=== PATIENT | female | born 1935 | race Caucasian/White ===

== ENCOUNTER → 2018-09-10 | Emergency (ER) | payer MEDICARE, OTHER ==
[~2018-09-10] VITALS: Ht 162.6 cm; Wt 70.5 kg
[~2018-09-10] MED LIST: ALBU6.7H INH; BLAC160C PO; CARB-86 PO; CYAN25003 PO; DIPH25TA2 PO; DOXY100C2 PO; FURO-150 PO; GABA-532 PO; HYDROcodone/acetaminophen 5mg/325mg tablet PO ONE; IRBE1TAB31 PO; LEVO50TA8 PO; POTA1GRA PO; VILA10TA PO; proparacaine 0.5% ophthalmic drops 15ml EACHEYE ONE
[2018-09-10 20:03] VITALS: BP 105/77
== END | disposition home or self-care (01) ==
LOC: ER 19:44
DX: B02.30 Zoster ocular disease, unspecified (principal); R21 Rash and other nonspecific skin eruption; Z88.8 Allergy status to other drugs, medicaments and biological substances; Z79.899 Other long term (current) drug therapy
CPT/HCPCS: 99283

== ENCOUNTER 2019-02-10 18:03 | Inpatient (IN) | payer MEDICARE, OTHER ==
[~2019-02-10] VITALS: Ht 170.2 cm; Wt 74.0 kg
[~2019-02-10 18:03] MED LIST changes: -ALBU6.7H INH; +ALBU6.7H9 INH; -HYDROcodone/acetaminophen 5mg/325mg tablet PO ONE; -proparacaine 0.5% ophthalmic drops 15ml EACHEYE ONE
--- NOTE | 2019-02-10 18:57 | NUR ---
LABS BEING DRAWN , OPPEZZO AWARE OF BP WILL CONTINUE TO REASSESS
--- NOTE | 2019-02-10 19:07 | NUR ---
CHEST X RAY DONE
--- NOTE | 2019-02-10 19:12 | NUR ---
PT TO CT
[2019-02-10 19:14] LABS: BASOPHILS # (AUTO) 0.1 X10'3 (0-0.2); BASOPHILS % (AUTO) 0.7 % (0-1); EOSINOPHILS # (AUTO) 0.2 X10'3 (0-0.9); EOSINOPHILS % (AUTO) 2.6 % (0-6); HEMATOCRIT 36.1 % (35.0-45.0); HEMOGLOBIN 12.4 g/dl (12.0-16.0); LYMPHOCYTES # (AUTO) 0.9 X10'3 (1.1-4.8); LYMPHOCYTES % (AUTO) 9.1 % (21-51); MEAN CORPUSCULAR HEMOGLOBIN 33.1 PG (27.0-31.0); MEAN CORPUSCULAR HGB CONC 34.5 g/dL (33.0-36.5); MEAN CORPUSCULAR VOLUME 96.1 FL (78-98); MEAN PLATELET VOLUME 8.5 FL (7.4-10.4); MONOCYTES # (AUTO) 0.8 X10'3 (0-0.9); MONOCYTES % (AUTO) 8.3 % (2-12); NEUTROPHILS # (AUTO) 7.4 X10'3 (1.8-7.7); NEUTROPHILS % (AUTO) 79.3 % (42-75); PLATELET COUNT 182 X10'3 (140-440); RED BLOOD COUNT 3.75 X10'6 (4.20-5.60); RED CELL DISTRIBUTION WIDTH 13.7 % (11.5-14.5); WHITE BLOOD COUNT 9.4 X10'3 (4.5-11.0)
[2019-02-10 19:30] LABS: ALANINE AMINOTRANSFERASE 17 U/L (12-78); ALBUMIN/GLOBULIN RATIO 1.1 (1.1-1.5); ALKALINE PHOSPHATASE 62 IU/L (46-116); ANION GAP 11 (8-16); ASPARTATE AMINO TRANSFERASE 16 U/L (10-37); BILIRUBIN,TOTAL 0.7 MG/DL (0.1-1.0); BLOOD UREA NITROGEN 81 MG/DL (7-18); BUN/CREATININE RATIO 25.4 (6.6-38.0); CALCIUM 8.1 MG/DL (8.5-10.1); CHLORIDE 101 MMOL/L (99-107); CREATININE 3.19 MG/DL (0.40-0.90); GLUCOSE 87 MG/DL (70-104); POTASSIUM 3.2 MMOL/L (3.5-5.1); SODIUM 137 MMOL/L (135-145); TOTAL CARBON DIOXIDE 25.3 MMOL/L (24-32); TOTAL PROTEIN 5.8 G/DL (6.4-8.2); eGFR 14 ML/MIN
[2019-02-10 19:38] LABS: TROPONIN I < 0.04 NG/ML (0.0-0.05)
[2019-02-10 19:50] LABS: CLARITY,URINE CLEAR (Clear); COLOR,URINE YELLOW (Yellow); GLUCOSE, URINE NEGATIVE (Neg); KETONES,URINE NEGATIVE (Neg); LEUKOCYTE ESTERASE ,URINE NEGATIVE (Neg); NITRITES, URINE NEGATIVE (Neg); OCCULT BLOOD,URINE NEGATIVE (Neg); PH,URINE 5.5 (4.8-8.0); PROTEIN,URINE NEGATIVE (Neg); UROBILINOGEN,URINE 0.2 E.U/dL (0.2-1.0)
[2019-02-10 19:53] LABS: UA COLLECTION TYPE STRAIGHT CATH
--- NOTE | 2019-02-10 20:11 | NUR ---
PT RESTING COMFORTBALY FAMILY AT BEDSIDE
--- NOTE | 2019-02-10 20:25 | NUR ---
NOTIFIED MD CUEVAS OF PTS LOW BP 70/50 MANUAL CUFF - ORDER FOR 1L BOLUS GIVEN - PTS LUNGS CLEAR AT THIS TIME. WILL MONITOR CLOSELY.
[2019-02-10] MEDS ORDERED: normal saline 1000ml 1,000 ML IV ONE (20:35)
[2019-02-10] MEDS ORDERED: potassium Cl 20 mEq SR tablet PO STA (20:55)
--- NOTE | 2019-02-10 21:27 | NUR ---
PTS BP CONTINUES TO TREND ON THE LOWSIDE. MEASUREMENTS HAVE BEEN TAKEN IN EACH ARM BOTH UPPER AND FOREARM WELL MANUAL PRESSURES. CONSISTENT READINGS NO MATTER WHERE OBTAINED. PT REMAINS ALERT AND ORIENTED. NO ACUTE DISTRESS. FAMILY AT BEDSIDE - UPDATED ON PLAN OF CARE.
--- NOTE | 2019-02-10 21:49 | NUR ---
BP TAKEN ON BILATERAL LOWER LEGS AND SYSTOLIC WAS IN THE 120'S EACH TIME. AWARE AND SPEAKING WITH PT.
[2019-02-10] MEDS ORDERED: ANAS1TAB PO (22:15)
[2019-02-10] MEDS ORDERED: HYDR12.55 PO (22:31)
[2019-02-10] MEDS ORDERED: TIOT4MIS2 IH (22:33)
--- NOTE | 2019-02-10 22:33 | NUR ---
PT UNABLE TO RECALL WHICH MEDICATIONS SHE TAKES. EMS PROVIDED US WITH A LIST BUT NO DOSES OR FREQUENCY. MED REC COMPLETED USING EXTERNAL MED HISTORY AND PTS BEST RECALL
--- NOTE | 2019-02-10 23:25 | NUR ---
PT TO FLOOR 129/53 98 % RA RR 16 HR 70 PAIN 07/18 LATIC AT 1.3 RN TORSTEN REPORTED OFF TOO
[2019-02-10] MEDS: anastrozole 1 MG tablet PO SCH (23:30)
[2019-02-10] MEDS ORDERED: magnesium 4gm in 100ml NS 100 ML IV PRN (23:40)
[2019-02-10] MEDS ORDERED: ondansetron/PF 4mg/2ml inj IV PRN (23:40)
[2019-02-10] MEDS ORDERED: potassium Cl 20 mEq SR tablet PO PRN (23:40)
[2019-02-10] MEDS ORDERED: potassium CL 10mEq/100ml bag 100 ML IV PRN ×2 (23:40)
[2019-02-10] MEDS ORDERED: magnesium 2GM in 50ml NS 50 ML IV PRN (23:40)
[2019-02-10] MEDS ORDERED: magnesium Cl slow-release 64mg tablet PO PRN (23:40)
[2019-02-11] VITALS (10 sets, daily range): BP systolic 97–165; BP diastolic 36–101
[2019-02-11] MEDS ORDERED: non-formulary drug (Albuterol Sulfate (Proventil Hfa) 2 PUFFS) INH SCH
[2019-02-11] MEDS ORDERED: diphenhydrAMINE 25mg capsule PO PRN (00:20)
[2019-02-11] MEDS: normal saline 1000ml 1,000 ML IV SCH ×3 (00:41→19:56)
--- NOTE | 2019-02-11 00:45 | NUR ---
Patient in room PCU 3013. I have received report from Ashley BARRERA and had the opportunity to ask questions and assume patient care.
[2019-02-11] MEDS ORDERED: albuterol 2.5 MG/3 ML nebule NEB PRN (02:00)
[2019-02-11 05:36] LABS: ALBUMIN 2.9 G/DL (3.4-5.0); ANION GAP 9 (8-16); BLOOD UREA NITROGEN 68 MG/DL (7-18); BUN/CREATININE RATIO 25.7 (6.6-38.0); CALCIUM 8.3 MG/DL (8.5-10.1); CHLORIDE 106 MMOL/L (99-107); CREATININE 2.65 MG/DL (0.40-0.90); GLUCOSE 82 MG/DL (70-104); MAGNESIUM 2.1 MG/DL (1.5-2.4); SODIUM 139 MMOL/L (135-145); TOTAL CARBON DIOXIDE 24.5 MMOL/L (24-32); eGFR 17 ML/MIN
[2019-02-11 05:42] LABS: POTASSIUM 3.7 MMOL/L (3.5-5.1)
--- NOTE | 2019-02-11 06:22 | NUR ---
Patient in room PCU 3013. I have received report from Cheng BARRERA and had the opportunity to ask questions and assume patient care. Pt was in bed resting with . all needs met at this time.
--- NOTE | 2019-02-11 06:24 | NUR ---
Problems reprioritized. Patient report given, questions answered & plan of care reviewed with Pura/Breezy RNs.
[2019-02-11 06:53] LABS: BASOPHILS # (AUTO) 0.1 X10'3 (0-0.2); BASOPHILS % (AUTO) 1.1 % (0-1); EOSINOPHILS # (AUTO) 0.2 X10'3 (0-0.9); EOSINOPHILS % (AUTO) 3.8 % (0-6); HEMOGLOBIN 9.6 g/dl (12.0-16.0); LYMPHOCYTES # (AUTO) 0.6 X10'3 (1.1-4.8); LYMPHOCYTES % (AUTO) 10.9 % (21-51); MEAN CORPUSCULAR HEMOGLOBIN 33.1 PG (27.0-31.0); MEAN CORPUSCULAR HGB CONC 34.3 g/dL (33.0-36.5); MEAN CORPUSCULAR VOLUME 96.6 FL (78-98); MEAN PLATELET VOLUME 8.1 FL (7.4-10.4); MONOCYTES # (AUTO) 0.5 X10'3 (0-0.9); MONOCYTES % (AUTO) 8.9 % (2-12); NEUTROPHILS % (AUTO) 75.3 % (42-75); PLATELET COUNT 142 X10'3 (140-440); RED CELL DISTRIBUTION WIDTH 13.9 % (11.5-14.5); WHITE BLOOD COUNT 5.3 X10'3 (4.5-11.0)
[2019-02-11] MEDS: cyanocobalamin 500mcg tablet PO SCH (07:42)
[2019-02-11] MEDS: levoTHYROXINE 25mcg tablet PO SCH (07:42)
[2019-02-11] MEDS: anastrozole 1 MG tablet PO SCH (07:43)
[2019-02-11] MEDS: K and/or MAG REPLACEMENT MC SCH (07:45)
--- NOTE | 2019-02-11 10:41 | NUR ---
Pt has refused to have field start PIV removed per protocol.
--- NOTE | 2019-02-11 11:52 | NUR ---
PAGER ID: [phone] MESSAGE: [id number] Naya Holcomb: PHILLIPI Ortho VS positive this am, rechecked and negative now but c/o headache and dizziness. Thanks Breezy [id number]
--- NOTE | 2019-02-11 12:00 | NUR ---
Patient refused lunch d/t family bringing her lunch of friend chicken and mashed potatoes, pt has a regular diet Addendum: 02/11/19 at 1556 by Breezy Ortiz RN Amended: Links added.
--- NOTE | 2019-02-11 18:04 | NUR ---
New hire documentation: I have reviewed and agree with all interventions, assessments performed and documented by Breezy BARRERA.
--- NOTE | 2019-02-11 18:27 | NUR ---
Problems reprioritized. Patient report given, questions answered & plan of care reviewed with Cheng BARRERA.
--- NOTE | 2019-02-11 18:49 | NUR ---
Patient in room PCU 3013. I have received report from Pura/Breezy RNs and had the opportunity to ask questions and assume patient care.
[2019-02-12 02:00] VITALS: BP 114/39
[2019-02-12 05:15] LABS: BASOPHILS # (AUTO) 0.1 X10'3 (0-0.2); BASOPHILS % (AUTO) 1.1 % (0-1); EOSINOPHILS # (AUTO) 0.3 X10'3 (0-0.9); EOSINOPHILS % (AUTO) 5.4 % (0-6); HEMATOCRIT 30.8 % (35.0-45.0); HEMOGLOBIN 10.7 g/dl (12.0-16.0); LYMPHOCYTES # (AUTO) 0.7 X10'3 (1.1-4.8); MEAN CORPUSCULAR HEMOGLOBIN 33.4 PG (27.0-31.0); MEAN CORPUSCULAR HGB CONC 34.7 g/dL (33.0-36.5); MEAN CORPUSCULAR VOLUME 96.1 FL (78-98); MEAN PLATELET VOLUME 8.4 FL (7.4-10.4); MONOCYTES # (AUTO) 0.5 X10'3 (0-0.9); MONOCYTES % (AUTO) 8.3 % (2-12); NEUTROPHILS # (AUTO) 4.4 X10'3 (1.8-7.7); NEUTROPHILS % (AUTO) 74.2 % (42-75); PLATELET COUNT 154 X10'3 (140-440); RED CELL DISTRIBUTION WIDTH 13.9 % (11.5-14.5)
[2019-02-12 05:32] LABS: ALBUMIN 2.6 G/DL (3.4-5.0); ANION GAP 9 (8-16); BLOOD UREA NITROGEN 42 MG/DL (7-18); BUN/CREATININE RATIO 20.8 (6.6-38.0); CALCIUM 7.9 MG/DL (8.5-10.1); CHLORIDE 110 MMOL/L (99-107); CREATININE 2.02 MG/DL (0.40-0.90); GLUCOSE 87 MG/DL (70-104); MAGNESIUM 1.7 MG/DL (1.5-2.4); POTASSIUM 3.2 MMOL/L (3.5-5.1); SODIUM 143 MMOL/L (135-145); TOTAL CARBON DIOXIDE 24.1 MMOL/L (24-32); eGFR 24 ML/MIN
[2019-02-12] MEDS: potassium Cl 20 mEq SR tablet PO PRN ×2 (05:49→10:08)
[2019-02-12] MEDS: normal saline 1000ml 1,000 ML IV SCH (05:49)
[2019-02-12 06:00] VITALS: BP 109/41
--- NOTE | 2019-02-12 06:00 | NUR ---
Patient in room PCU 3013. I have received report from Cheng BARRERA and had the opportunity to ask questions and assume patient care.
--- NOTE | 2019-02-12 06:10 | NUR ---
Orientee documentation: I have reviewed and agree with all interventions, assessments performed and documented by Roxann BARRERA
--- NOTE | 2019-02-12 06:20 | NUR ---
Problems reprioritized. Patient report given, questions answered & plan of care reviewed with Thien/Breezy RNs.
--- NOTE | 2019-02-12 06:28 | NUR ---
Patient in room PCU 3013. I have received report from Cheng BARRERA and had the opportunity to ask questions and assume patient care. Pt is in bed resting all needs met at this time.
[2019-02-12] MEDS: levoTHYROXINE 25mcg tablet PO SCH (07:44)
[2019-02-12] MEDS: anastrozole 1 MG tablet PO SCH (07:44)
[2019-02-12] MEDS: cyanocobalamin 500mcg tablet PO SCH (07:44)
[2019-02-12] MEDS: K and/or MAG REPLACEMENT MC SCH (07:46)
--- NOTE | 2019-02-12 12:00 | NUR ---
I agree with all of Breezy garber's charting
--- NOTE | 2019-02-12 12:05 | NUR ---
Pt is stable for discharge per MD orders, discharge instructions reviewed with patient daughter and spouse, all questions answered, no new medication prescription at time of discharge, tele 58 removed and returned, PIV removed and clean dry dressing in place, pt wheeled to lobby by hospital staff @ 1202, will discharge to home with home health services with daughter and spouse in private vehicle, all belongings with pt at the time of discharge.
== END 2019-02-12 12:06 | disposition home health service (06) | DRG 314 ==
LOC: ER 18:03 → PCU 3S 23:50 → CMPBEDREQ 23:59
PROVIDERS: ADMIT Internal Medicine; ATTEND Internal Medicine
DX: I95.9 Hypotension, unspecified (principal); N17.0 Acute kidney failure with tubular necrosis; D64.9 Anemia, unspecified; E86.0 Dehydration; E03.9 Hypothyroidism, unspecified; I12.9 Hypertensive chronic kidney disease with stage 1 through stage 4 chronic kidney disease, or unspecified chronic kidney disease; I25.10 Atherosclerotic heart disease of native coronary artery without angina pectoris; I70.0 Atherosclerosis of aorta; N18.9 Chronic kidney disease, unspecified; F32.9 Major depressive disorder, single episode, unspecified; R19.7 Diarrhea, unspecified; Z90.2 Acquired absence of lung [part of]; Z85.3 Personal history of malignant neoplasm of breast; Z85.118 Personal history of other malignant neoplasm of bronchus and lung; Z88.8 Allergy status to other drugs, medicaments and biological substances; Z79.899 Other long term (current) drug therapy; Z79.890 Hormone replacement therapy; Z79.811 Long term (current) use of aromatase inhibitors; Z92.3 Personal history of irradiation
CPT/HCPCS: 36415; 71045; 74176; 80048; 80053; 81003; 83605; 83735; 84145; 84443; 84484; 85025; 87040; 87081; 93005; 94760; 96360; 97110; 97116; 97161; 97530; 99285; G0378; J7030

== ENCOUNTER 2019-03-31 09:58 | Inpatient (IN) | payer MEDICARE, OTHER ==
[~2019-03-31] VITALS: Ht 170.2 cm; Wt 63.6 kg
[~2019-03-31 09:58] MED LIST changes: +ANAS1TAB PO; -BLAC160C PO; -CARB-86 PO; -DOXY100C2 PO; -FURO-150 PO; -GABA-532 PO; -IRBE1TAB31 PO; -POTA1GRA PO; +TIOT4MIS2 IH
[2019-03-31] MEDS ORDERED: normal saline 1000ML IV soln IV ONE (10:15)
[2019-03-31 10:48] LABS: BASOPHILS # (AUTO) 0.1 X10'3 (0-0.2); BASOPHILS % (AUTO) 0.5 % (0-1); EOSINOPHILS # (AUTO) 0.1 X10'3 (0-0.9); EOSINOPHILS % (AUTO) 0.8 % (0-6); HEMATOCRIT 41.6 % (35.0-45.0); HEMOGLOBIN 14.4 g/dl (12.0-16.0); LYMPHOCYTES # (AUTO) 0.6 X10'3 (1.1-4.8); LYMPHOCYTES % (AUTO) 4.2 % (21-51); MEAN CORPUSCULAR HEMOGLOBIN 32.8 PG (27.0-31.0); MEAN CORPUSCULAR HGB CONC 34.7 g/dL (33.0-36.5); MEAN CORPUSCULAR VOLUME 94.5 FL (78-98); MEAN PLATELET VOLUME 8.6 FL (7.4-10.4); MONOCYTES # (AUTO) 0.7 X10'3 (0-0.9); MONOCYTES % (AUTO) 4.6 % (2-12); NEUTROPHILS # (AUTO) 12.8 X10'3 (1.8-7.7); NEUTROPHILS % (AUTO) 89.9 % (42-75); PLATELET COUNT 268 X10'3 (140-440); RED CELL DISTRIBUTION WIDTH 14.9 % (11.5-14.5); WHITE BLOOD COUNT 14.2 X10'3 (4.5-11.0)
[2019-03-31 11:03] LABS: PARTIAL THROMBOPLASTIN TIME 25 SECONDS (22-32)
[2019-03-31 11:04] LABS: ALANINE AMINOTRANSFERASE 27 U/L (12-78); ALBUMIN 3.3 G/DL (3.4-5.0); ALBUMIN/GLOBULIN RATIO 0.8 (1.1-1.5); ALKALINE PHOSPHATASE 100 IU/L (46-116); ANION GAP 13 (8-16); ASPARTATE AMINO TRANSFERASE 33 U/L (10-37); BLOOD UREA NITROGEN 25 MG/DL (7-18); BUN/CREATININE RATIO 12.6 (6.6-38.0); CALCIUM 8.6 MG/DL (8.5-10.1); CHLORIDE 90 MMOL/L (99-107); CREATININE 1.98 MG/DL (0.40-0.90); GLUCOSE 116 MG/DL (70-104); SODIUM 134 MMOL/L (135-145); TOTAL PROTEIN 7.2 G/DL (6.4-8.2); eGFR 24 ML/MIN
[2019-03-31 11:07] LABS: POTASSIUM 2.3 MMOL/L (3.5-5.1)
[2019-03-31] MEDS ORDERED: potassium Cl 10 mEq/100mL bag IV ONE (11:15)
[2019-03-31] MEDS ORDERED: CefTRIAXone 2gm/D5W 50ml 50 ML IV ONE (11:20)
[2019-03-31 11:32] LABS: CLARITY,URINE CLEAR (Clear); COLOR,URINE YELLOW (Yellow); GLUCOSE, URINE NEGATIVE (Neg); KETONES,URINE TRACE mg/dl (Neg); LEUKOCYTE ESTERASE ,URINE NEGATIVE (Neg); NITRITES, URINE NEGATIVE (Neg); OCCULT BLOOD,URINE NEGATIVE (Neg); PROTEIN,URINE NEGATIVE (Neg)
[2019-03-31 11:36] LABS: UA COLLECTION TYPE STRAIGHT CATH
--- NOTE | 2019-03-31 12:01 | NUR ---
PT VITALS CHECKED BP 129/74,HR 76.FAMILY AT BEDSIDE,PT IV ABX FINISHED ,500 ML OF N.S INFUSING PER MD ORDERS.NO DISTRESS NOTED,WILL CONT TO MONITOR.
[2019-03-31] MEDS ORDERED: CHOL100046 PO (13:34)
[2019-03-31] MEDS ORDERED: magnesium Cl slow-release 64mg tablet PO PRN (13:50)
[2019-03-31] MEDS ORDERED: magnesium 4gm in 100ml NS 100 ML IV PRN (13:50)
[2019-03-31] MEDS ORDERED: magnesium 2GM in 50ml NS 50 ML IV PRN (13:50)
[2019-03-31] MEDS ORDERED: magnesium hydroxide 30ml (MOM) UD suspension PO PRN (13:50)
[2019-03-31] MEDS ORDERED: mag hydrox/Alum hydrox/simeth 30ml oral suspension PO PRN (13:50)
[2019-03-31] MEDS ORDERED: acetaminophen 325mg tablet PO PRN (13:50)
[2019-03-31] MEDS ORDERED: potassium CL 10mEq/100ml bag 100 ML IV PRN ×2 (13:50)
[2019-03-31] MEDS ORDERED: ondansetron/PF 4mg/2ml inj IV PRN (13:50)
[2019-03-31] MEDS ORDERED: HYDROcodone/acetaminophen 5mg/325mg tablet PO PRN (13:50)
[2019-03-31] MEDS ORDERED: morphine 2 MG/ML inj. syringe IV PRN ×2 (13:50)
[2019-03-31] MEDS ORDERED: ipratropium/albuterol 3ml nebule NEB PRN (14:10)
[2019-03-31] MEDS: normal saline 1000ml 1,000 ML IV SCH ×2 (14:47→21:31)
--- NOTE | 2019-03-31 14:48 | NUR ---
PT RESTING IN BED QUIETLY NO DISTRESS NOTED,PT FAMILY AT BEDSIDE ,IV FLUID INFUSING PER MD ORDERS.
[2019-03-31] MEDS: ipratropium/albuterol 3ml nebule NEB SCH ×2 (16:18→20:41)
[2019-03-31 18:00] VITALS: BP 103/54
--- NOTE | 2019-03-31 18:43 | NUR ---
Patient in room [facility] 359. I have received report from BRUCE Herrera and had the opportunity to ask questions and assume patient care.
[2019-03-31] MEDS: potassium Cl 20 mEq SR tablet PO PRN (19:17)
[2019-03-31] MEDS: heparin, porcine 5000 units/ml vial SQ SCH (19:18)
[2019-03-31 20:00] VITALS: BP_SYST 102; BP_SYST 89; BP_SYST 96; BP_DIAS 48; BP_DIAS 59; BP_DIAS 62
[2019-04-01] VITALS (12 sets, daily range): BP systolic 63–95; BP diastolic 40–63
[2019-04-01] MEDS: potassium Cl 20 mEq SR tablet PO PRN ×4 (01:00→19:26)
[2019-04-01] MEDS: normal saline 1000ml 1,000 ML IV SCH ×2 (01:06→07:27)
--- NOTE | 2019-04-01 06:15 | NUR ---
Problems reprioritized. Patient report given, questions answered & plan of care reviewed with BRUCE Justin.
[2019-04-01 06:22] LABS: BASOPHILS # (AUTO) 0.1 X10'3 (0-0.2); BASOPHILS % (AUTO) 0.7 % (0-1); EOSINOPHILS # (AUTO) 0.1 X10'3 (0-0.9); EOSINOPHILS % (AUTO) 1.9 % (0-6); HEMATOCRIT 32.3 % (35.0-45.0); HEMOGLOBIN 11.2 g/dl (12.0-16.0); LYMPHOCYTES # (AUTO) 0.3 X10'3 (1.1-4.8); LYMPHOCYTES % (AUTO) 4.4 % (21-51); MEAN CORPUSCULAR HEMOGLOBIN 32.8 PG (27.0-31.0); MEAN CORPUSCULAR HGB CONC 34.5 g/dL (33.0-36.5); MEAN CORPUSCULAR VOLUME 94.9 FL (78-98); MEAN PLATELET VOLUME 8.5 FL (7.4-10.4); MONOCYTES # (AUTO) 0.4 X10'3 (0-0.9); MONOCYTES % (AUTO) 4.9 % (2-12); NEUTROPHILS # (AUTO) 6.9 X10'3 (1.8-7.7); NEUTROPHILS % (AUTO) 88.1 % (42-75); PLATELET COUNT 237 X10'3 (140-440); RED BLOOD COUNT 3.41 X10'6 (4.20-5.60); RED CELL DISTRIBUTION WIDTH 15.2 % (11.5-14.5); WHITE BLOOD COUNT 7.8 X10'3 (4.5-11.0)
[2019-04-01 06:32] LABS: ALBUMIN 2.5 G/DL (3.4-5.0); ANION GAP 11 (8-16); BLOOD UREA NITROGEN 16 MG/DL (7-18); BUN/CREATININE RATIO 9.4 (6.6-38.0); CALCIUM 7.4 MG/DL (8.5-10.1); CHLORIDE 104 MMOL/L (99-107); CREATININE 1.71 MG/DL (0.40-0.90); GLUCOSE 102 MG/DL (70-104); MAGNESIUM 1.5 MG/DL (1.5-2.4); SODIUM 143 MMOL/L (135-145); TOTAL CARBON DIOXIDE 27.9 MMOL/L (24-32); eGFR 29 ML/MIN
--- NOTE | 2019-04-01 06:44 | NUR ---
Patient in room [facility] 359. I have received report from Atilio BARRERA and had the opportunity to ask questions and assume patient care.
[2019-04-01 07:08] LABS: POTASSIUM 2.7 MMOL/L (3.5-5.1)
[2019-04-01] MEDS: CefTRIAXone/D5W-Rocephin 1gm 50 ML IV SCH (07:28)
[2019-04-01] MEDS: vitamin D (cholecalciferol) 1,000 unit tablet PO SCH (07:31)
[2019-04-01] MEDS: levoTHYROXINE 25mcg tablet PO SCH (07:32)
[2019-04-01] MEDS: cyanocobalamin 500mcg tablet PO SCH (07:32)
[2019-04-01] MEDS: heparin, porcine 5000 units/ml vial SQ SCH ×2 (07:33→19:29)
[2019-04-01] MEDS: K and/or MAG REPLACEMENT MC SCH (08:00)
[2019-04-01] MEDS: ipratropium/albuterol 3ml nebule NEB SCH ×3 (08:14→21:00)
--- NOTE | 2019-04-01 11:24 | NUR ---
Patient's unable to pee yet at this time, bladder scan shows 246ml - Dr. Solares notified. I also let him know about the dizziness and low BP during orthostatic vitals check this am. Dr. Solares ordered 1L NS bolus to be given then back to the previous IVF rate.
[2019-04-01] MEDS ORDERED: normal saline 1000ml 1,000 ML IVB ONE ×2 (11:26→14:24)
--- NOTE | 2019-04-01 14:24 | NUR ---
Called Dr. Solares regarding persistent low BP readings SBP 60-80's, heart rate 80's, asymptomatic. I also let the doctor know that patient has still not peeing even after the bolus and we were giving patient KCL for replacement. Bladder scan was 354ml, bladder distended. Justice catheter inserted as ordered, patient tolerated the procedure. Another NS 1L bolus started. Charge nurse Phyllis aware of this
[2019-04-01] MEDS ORDERED: magnesium 2GM in 50ml NS 50 ML IV ONE (15:20)
--- NOTE | 2019-04-01 16:10 | NUR ---
Second liter of NS bolus completed, BP manually was 90/60 on the right arm, pulse 92
--- NOTE | 2019-04-01 17:26 | NUR ---
Mg 2gm IV given per Dr. Solares's order. I made him aware when I received his order that patient's Mg is 1.5.
--- NOTE | 2019-04-01 18:01 | NUR ---
Patient's at bedside reported that patient's new peripheral IV was leaking. IV site was leaking and the catheter was bended. Pressure dressing applied. Patient refused reinsertion at this time. Explained to patient she really need to have a new IV and will have the night nurse put another IV
--- NOTE | 2019-04-01 18:53 | NUR ---
Problems reprioritized. Patient report given, questions answered & plan of care reviewed with Atilio BARRERA.
[2019-04-01] MEDS: lactobacillus rhamnosus 10,000 MMU CELLS/CAPSULE PO SCH (19:27)
--- NOTE | 2019-04-01 20:02 | NUR ---
patient is having low bps today. BP machine showed 64/37, I took it manually and got 90/50. Which is closer to baseline. Patient is not feeling well and has been anxious so I am holding off on orthostatic vitals tonight.She pulled out IV at change of shift charge nurse putting an IV in now which I fel is more of a priority, as well. Addendum: 04/01/19 at 2004 by Atilio Flynn RN Amended: Links added.
[2019-04-02] MEDS ORDERED: normal saline 1000ml 1,000 ML IV ONE
[2019-04-02] MEDS: potassium Cl 20 mEq SR tablet PO PRN (00:18)
--- NOTE | 2019-04-02 00:26 | NUR ---
patients BP was 85/40, I took it manually and got 86/64. Informed hospitalist and he I received an order to give 1L bolus.Will continue to monitor .
[2019-04-02 00:28] VITALS: BP 85/40
--- NOTE | 2019-04-02 00:32 | NUR ---
gentry Richards 86/64 Addendum: 04/02/19 at 0032 by Atilio Flynn RN Amended: Links added.
--- NOTE | 2019-04-02 01:18 | NUR ---
Patients blood pressure after bolus was 98/60, no s/s of fluid overload. Will continue to monitor.
--- NOTE | 2019-04-02 03:00 | NUR ---
0200: Patient pulled IV out. She was also trying to pull peng out. She wanted to go home. Educated patient on why she needs to have an IV and the peng in place. Got her up to the recliner chair, while I changed her bedding. Charge nurse placed new IV in patients left forearm.
[2019-04-02 05:45] LABS: BASOPHILS # (AUTO) 0.1 X10'3 (0-0.2); BASOPHILS % (AUTO) 1.1 % (0-1); EOSINOPHILS # (AUTO) 0.2 X10'3 (0-0.9); EOSINOPHILS % (AUTO) 3.1 % (0-6); HEMATOCRIT 27.2 % (35.0-45.0); HEMOGLOBIN 9.5 g/dl (12.0-16.0); LYMPHOCYTES # (AUTO) 0.3 X10'3 (1.1-4.8); LYMPHOCYTES % (AUTO) 4.3 % (21-51); MEAN CORPUSCULAR HEMOGLOBIN 32.8 PG (27.0-31.0); MEAN CORPUSCULAR HGB CONC 34.7 g/dL (33.0-36.5); MEAN CORPUSCULAR VOLUME 94.4 FL (78-98); MEAN PLATELET VOLUME 8.4 FL (7.4-10.4); MONOCYTES # (AUTO) 0.4 X10'3 (0-0.9); NEUTROPHILS # (AUTO) 6.3 X10'3 (1.8-7.7); NEUTROPHILS % (AUTO) 85.5 % (42-75); PLATELET COUNT 229 X10'3 (140-440); RED BLOOD COUNT 2.88 X10'6 (4.20-5.60); RED CELL DISTRIBUTION WIDTH 15.4 % (11.5-14.5); WHITE BLOOD COUNT 7.4 X10'3 (4.5-11.0)
[2019-04-02] MEDS: normal saline 1000ml 1,000 ML IV SCH ×3 (05:48→20:07)
[2019-04-02 06:19] LABS: ALBUMIN 2.2 G/DL (3.4-5.0); ANION GAP 11 (8-16); BLOOD UREA NITROGEN 7 MG/DL (7-18); BUN/CREATININE RATIO 6.2 (6.6-38.0); CALCIUM 7.1 MG/DL (8.5-10.1); CHLORIDE 110 MMOL/L (99-107); CREATININE 1.13 MG/DL (0.40-0.90); GLUCOSE 99 MG/DL (70-104); POTASSIUM 3.7 MMOL/L (3.5-5.1); SODIUM 142 MMOL/L (135-145); TOTAL CARBON DIOXIDE 21.2 MMOL/L (24-32); eGFR 46 ML/MIN
--- NOTE | 2019-04-02 06:40 | NUR ---
Problems reprioritized. Patient report given, questions answered & plan of care reviewed with Eileen RN.
[2019-04-02 07:00] VITALS: BP 134/75
[2019-04-02] MEDS: levoTHYROXINE 25mcg tablet PO SCH (07:29)
[2019-04-02] MEDS: vitamin D (cholecalciferol) 1,000 unit tablet PO SCH (07:29)
[2019-04-02] MEDS: cyanocobalamin 500mcg tablet PO SCH (07:30)
[2019-04-02] MEDS: lactobacillus rhamnosus 10,000 MMU CELLS/CAPSULE PO SCH ×2 (07:30→20:05)
[2019-04-02] MEDS: K and/or MAG REPLACEMENT MC SCH (07:31)
[2019-04-02] MEDS: CefTRIAXone/D5W-Rocephin 1gm 50 ML IV SCH (07:32)
[2019-04-02] MEDS: heparin, porcine 5000 units/ml vial SQ SCH ×2 (07:36→20:05)
[2019-04-02] MEDS: ipratropium/albuterol 3ml nebule NEB SCH ×3 (07:54→20:33)
[2019-04-02 09:57] VITALS: BP_SYST 104; BP_SYST 114; BP_SYST 99; BP_DIAS 45; BP_DIAS 58; BP_DIAS 61
[2019-04-02 11:23] VITALS: BP 105/47
[2019-04-02 14:44] LABS: % IRON SATURATION 44 % (11-46); IRON 65 UG/DL (49-151); TOTAL IRON BINDING CAPACITY 148 UG/DL (259-388)
--- NOTE | 2019-04-02 18:37 | NUR ---
Patient in room [facility] 359. I have received report from Clarissa BARRERA and had the opportunity to ask questions and assume patient care. Patient is with and daughter by her bedside. She appear to be doing better. She is alert and oriented to her own ability
[2019-04-02 19:00] VITALS: BP 99/44
--- NOTE | 2019-04-02 19:06 | NUR ---
Problems reprioritized. Patient report given, questions answered & plan of care reviewed with BRUCE Josue.
[2019-04-03] VITALS: BP 118/50
[2019-04-03 05:58] LABS: BASOPHILS # (AUTO) 0.1 X10'3 (0-0.2); BASOPHILS % (AUTO) 1.4 % (0-1); EOSINOPHILS # (AUTO) 0.5 X10'3 (0-0.9); HEMATOCRIT 30.1 % (35.0-45.0); HEMOGLOBIN 10.2 g/dl (12.0-16.0); LYMPHOCYTES # (AUTO) 0.4 X10'3 (1.1-4.8); LYMPHOCYTES % (AUTO) 6.7 % (21-51); MEAN CORPUSCULAR HEMOGLOBIN 32.8 PG (27.0-31.0); MEAN CORPUSCULAR HGB CONC 33.9 g/dL (33.0-36.5); MEAN CORPUSCULAR VOLUME 96.8 FL (78-98); MEAN PLATELET VOLUME 8.8 FL (7.4-10.4); MONOCYTES # (AUTO) 0.4 X10'3 (0-0.9); MONOCYTES % (AUTO) 7.1 % (2-12); NEUTROPHILS # (AUTO) 4.8 X10'3 (1.8-7.7); NEUTROPHILS % (AUTO) 76.8 % (42-75); PLATELET COUNT 242 X10'3 (140-440); RED BLOOD COUNT 3.11 X10'6 (4.20-5.60); RED CELL DISTRIBUTION WIDTH 15.9 % (11.5-14.5); WHITE BLOOD COUNT 6.2 X10'3 (4.5-11.0)
[2019-04-03 06:27] LABS: ALBUMIN 2.3 G/DL (3.4-5.0); ANION GAP 8 (8-16); BLOOD UREA NITROGEN 3 MG/DL (7-18); BUN/CREATININE RATIO 2.9 (6.6-38.0); CALCIUM 7.9 MG/DL (8.5-10.1); CHLORIDE 111 MMOL/L (99-107); CREATININE 1.04 MG/DL (0.40-0.90); GLUCOSE 84 MG/DL (70-104); POTASSIUM 3.4 MMOL/L (3.5-5.1); SODIUM 144 MMOL/L (135-145); TOTAL CARBON DIOXIDE 24.9 MMOL/L (24-32); eGFR 51 ML/MIN
--- NOTE | 2019-04-03 06:35 | NUR ---
Patient in room [facility] 359. I have received report from BRUCE Josue and had the opportunity to ask questions and assume patient care.
[2019-04-03 07:00] VITALS: BP 129/71
[2019-04-03] MEDS: K and/or MAG REPLACEMENT MC SCH (07:03)
[2019-04-03] MEDS: vitamin D (cholecalciferol) 1,000 unit tablet PO SCH (08:25)
[2019-04-03] MEDS: heparin, porcine 5000 units/ml vial SQ SCH ×2 (08:26→20:13)
[2019-04-03] MEDS: CefTRIAXone/D5W-Rocephin 1gm 50 ML IV SCH (08:26)
[2019-04-03] MEDS: potassium Cl 20 mEq SR tablet PO PRN ×3 (08:26→22:19)
[2019-04-03] MEDS: lactobacillus rhamnosus 10,000 MMU CELLS/CAPSULE PO SCH ×2 (08:26→20:13)
[2019-04-03] MEDS: cyanocobalamin 500mcg tablet PO SCH (08:26)
[2019-04-03] MEDS: levoTHYROXINE 25mcg tablet PO SCH (08:27)
[2019-04-03] MEDS: ipratropium/albuterol 3ml nebule NEB SCH ×3 (08:34→20:55)
[2019-04-03 11:00] VITALS: BP 103/58
[2019-04-03] MEDS: normal saline 1000ml 1,000 ML IV SCH ×2 (11:48→21:48)
--- NOTE | 2019-04-03 11:48 | NUR ---
I have reviewed and agree with all medications administered and interventions performed by [facility] Student(ZAC) Addendum: 04/03/19 at 1148 by Shila Alcantar RT Amended: Links added.
[2019-04-03] MEDS ORDERED: potassium CL 10mEq/100ml bag 100 ML IV PRN (14:30)
[2019-04-03] MEDS ORDERED: potassium Cl 20 mEq SR tablet PO PRN (14:30)
[2019-04-03] MEDS ORDERED: magnesium 4gm in 100ml NS 100 ML IV PRN (14:30)
[2019-04-03] MEDS ORDERED: magnesium Cl slow-release 64mg tablet PO PRN (14:30)
[2019-04-03 18:00] VITALS: BP 124/79
--- NOTE | 2019-04-03 18:34 | NUR ---
Problems reprioritized. Patient report given, questions answered & plan of care reviewed with BRUCE Goddard.
--- NOTE | 2019-04-03 18:34 | NUR ---
Patient in room [facility] 359. I have received report from BRUCE Steen and had the opportunity to ask questions and assume patient care.
--- NOTE | 2019-04-03 19:00 | NUR ---
pt refused orthostatic vitals
[2019-04-03] MEDS: docusate sod 100mg capsule PO SCH (20:13)
[2019-04-04 00:34] VITALS: BP 122/68
--- NOTE | 2019-04-04 01:40 | NUR ---
pt refused 20mEq potassium pill
[2019-04-04] MEDS: levoTHYROXINE 25mcg tablet PO SCH (06:27)
--- NOTE | 2019-04-04 06:54 | NUR ---
Problems reprioritized. Patient report given, questions answered & plan of care reviewed with BRUCE Davila.
[2019-04-04 07:00] VITALS: BP 107/59
[2019-04-04 07:37] LABS: BASOPHILS # (AUTO) 0.1 X10'3 (0-0.2); BASOPHILS % (AUTO) 1.3 % (0-1); EOSINOPHILS # (AUTO) 0.5 X10'3 (0-0.9); EOSINOPHILS % (AUTO) 9.4 % (0-6); HEMOGLOBIN 10.9 g/dl (12.0-16.0); LYMPHOCYTES # (AUTO) 0.4 X10'3 (1.1-4.8); MEAN CORPUSCULAR HEMOGLOBIN 33.2 PG (27.0-31.0); MEAN CORPUSCULAR HGB CONC 34.1 g/dL (33.0-36.5); MEAN CORPUSCULAR VOLUME 97.5 FL (78-98); MEAN PLATELET VOLUME 8.4 FL (7.4-10.4); MONOCYTES # (AUTO) 0.5 X10'3 (0-0.9); MONOCYTES % (AUTO) 8.1 % (2-12); NEUTROPHILS # (AUTO) 4.4 X10'3 (1.8-7.7); NEUTROPHILS % (AUTO) 75.2 % (42-75); PLATELET COUNT 236 X10'3 (140-440); RED BLOOD COUNT 3.28 X10'6 (4.20-5.60); RED CELL DISTRIBUTION WIDTH 16.2 % (11.5-14.5); WHITE BLOOD COUNT 5.8 X10'3 (4.5-11.0)
[2019-04-04] MEDS: normal saline 1000ml 1,000 ML IV SCH (07:48)
[2019-04-04 07:59] LABS: ALBUMIN 2.3 G/DL (3.4-5.0); ANION GAP 11 (8-16); BLOOD UREA NITROGEN 3 MG/DL (7-18); BUN/CREATININE RATIO 3.1 (6.6-38.0); CALCIUM 8.2 MG/DL (8.5-10.1); CHLORIDE 110 MMOL/L (99-107); CREATININE 0.98 MG/DL (0.40-0.90); GLUCOSE 84 MG/DL (70-104); POTASSIUM 4.3 MMOL/L (3.5-5.1); SODIUM 143 MMOL/L (135-145); TOTAL CARBON DIOXIDE 22.5 MMOL/L (24-32); eGFR 54 ML/MIN
[2019-04-04] MEDS: K and/or MAG REPLACEMENT MC SCH (08:00)
[2019-04-04] MEDS: ipratropium/albuterol 3ml nebule NEB SCH ×2 (09:00→15:27)
[2019-04-04] MEDS: docusate sod 100mg capsule PO SCH (09:12)
[2019-04-04] MEDS: CefTRIAXone/D5W-Rocephin 1gm 50 ML IV SCH (09:12)
[2019-04-04] MEDS: heparin, porcine 5000 units/ml vial SQ SCH (09:13)
[2019-04-04] MEDS: vitamin D (cholecalciferol) 1,000 unit tablet PO SCH (09:14)
[2019-04-04] MEDS: cyanocobalamin 500mcg tablet PO SCH (09:15)
[2019-04-04] MEDS: lactobacillus rhamnosus 10,000 MMU CELLS/CAPSULE PO SCH (09:15)
[2019-04-04 11:00] VITALS: BP 118/63
--- NOTE | 2019-04-04 12:06 | NUR ---
Initial: Pt admit with KEMAR/CKD, suspected dehydration, SIRS/sepsis, acute metabolic encephalopathy, and generally deconditioned. Metabolic encephalopathy resolved however pt with some dementia per MD notes. Sepsis score 0 per physical assessment. Pt currently on a regular diet previously documented with 25-50% PO intake however up to 100% at dinner last night, pending documentation of PO intake today. LBM 03/29, pt just started on routine Colace. Likely appetite will improve once constipation resolves. Will continue to follow. Recommendations: 1) Continue regular diet 2) Monitor need for ONS; encourage PO intake 3) Routine bowel care; monitor need for additional 4) Wt per rx Addendum: 04/04/19 at [address] Amended: Links added.
[2019-04-04] MEDS ORDERED: CEFD300C3 PO (12:20)
[2019-04-04 14:00] VITALS: BP_SYST 67; BP_SYST 84; BP_DIAS 46; BP_DIAS 48; BP_DIAS 62
--- NOTE | 2019-04-04 16:59 | NUR ---
SWEET CATH DC 1400. PT HAD BM WITH URINE MIX. BLADDER SCAN WAS 42. DR HUERTA NOTIFIED. PT READY TO DC HOME. CALLED DAUGHTER TIEN WHO I SPOKE WITH EARLIER RE DC. SHE PREVIOUSLY STATED THAT SHE WOULD BE ABLE TO PICK PT UP TODAY BUT WOULD PREFER TOMORROW. I TOLD HER I WOULD TALK TO THE DR. DR HUERTA STATES THAT PT NEEDS TO BE DC TODAY. LEFT MESSAGE FOR DAUGHTER TO CALL ME BACK. STILL WAITING FOR A CALL BACK.
--- NOTE | 2019-04-04 17:38 | NUR ---
PT DISCHARGED IN STABLE CONDITION. LEFT FACILITY IN PRIVATE VEHICLE WITH DAUGHTER. IV DC CANULA INTACT. ALL BELONGINGS IN HAND. FOLLOW UP INSTRUCTIONS GIVEN, ALL QUESTIONS ANSWERED. Addendum: 04/04/19 at 1739 by Stefany Arredondo RN Amended: Links added.
== END 2019-04-04 17:35 | disposition home health service (06) | DRG 682 ==
LOC: ER 09:59 → SUR 3N 17:20
PROVIDERS: ADMIT Hospitalist; ATTEND Internal Medicine
DX: N17.9 Acute kidney failure, unspecified (principal); G93.41 Metabolic encephalopathy; E87.6 Hypokalemia; E86.0 Dehydration; D64.9 Anemia, unspecified; E03.9 Hypothyroidism, unspecified; J44.9 Chronic obstructive pulmonary disease, unspecified; N18.9 Chronic kidney disease, unspecified
CPT/HCPCS: 36415; 70450; 71045; 74176; 80048; 80053; 81003; 83540; 83550; 83605; 83735; 84132; 84145; 84484; 85025; 85610; 85730; 87040; 87081; 93005; 94640; 94760; 96361; 96365; 96368; 97116; 97161; 97530; 99285; G0378; J0696; J1644; J2405; J3475; J3480; J7030

== ENCOUNTER 2019-04-22 10:20 | Emergency (ER) | payer MEDICARE, OTHER ==
[~2019-04-22] VITALS: Ht 167.6 cm; Wt 68.0 kg
[~2019-04-22 10:20] MED LIST changes: -ANAS1TAB PO; +CHOL100046 PO; -DIPH25TA2 PO; -VILA10TA PO
--- NOTE | 2019-04-22 10:35 | NUR ---
C/O PAIN TO LOWER ABDOMEN/RECTUM FROM CONSTIPATION FOR THE PAST 3-4 DAYS.
--- NOTE | 2019-04-22 10:35 | NUR ---
Viktoria marley in ED - 04/22/19 at 1035 by ALEXIS C/O PAIN TO LOWER ABD /RECTUM FROM CONSTI
--- NOTE | 2019-04-22 12:21 | NUR ---
Pt assisted to a bedside commode to attempt to void and pass a bowel movement. Pt reports significant abd pain and discomfort from abdominal pain.
--- NOTE | 2019-04-22 12:34 | NUR ---
Pt had small smear of orangish brown bowel movement. Pt reports significant pain when being wiped with moist towellette. Pt reports she is not ready to return to the [facility] so the IV site can be started in preparation for the CT scan of the abd. Pt's daughter is at the bedside.
[2019-04-22 12:40] LABS: BASOPHILS # (AUTO) 0.1 X10'3 (0-0.2); BASOPHILS % (AUTO) 0.5 % (0-1); EOSINOPHILS # (AUTO) 0.1 X10'3 (0-0.9); EOSINOPHILS % (AUTO) 0.7 % (0-6); HEMATOCRIT 37.2 % (35.0-45.0); HEMOGLOBIN 12.5 g/dl (12.0-16.0); LYMPHOCYTES % (AUTO) 8.4 % (21-51); MEAN CORPUSCULAR HEMOGLOBIN 33.5 PG (27.0-31.0); MEAN CORPUSCULAR HGB CONC 33.7 g/dL (33.0-36.5); MEAN CORPUSCULAR VOLUME 99.1 FL (78-98); MEAN PLATELET VOLUME 8.6 FL (7.4-10.4); MONOCYTES # (AUTO) 0.7 X10'3 (0-0.9); NEUTROPHILS # (AUTO) 10.2 X10'3 (1.8-7.7); NEUTROPHILS % (AUTO) 84.4 % (42-75); PLATELET COUNT 261 X10'3 (140-440); RED BLOOD COUNT 3.75 X10'6 (4.20-5.60); RED CELL DISTRIBUTION WIDTH 16.8 % (11.5-14.5); WHITE BLOOD COUNT 12.1 X10'3 (4.5-11.0)
--- NOTE | 2019-04-22 12:46 | NUR ---
IV site obtained in the left AC by Edgar Holliday RN.
[2019-04-22 12:53] LABS: ALANINE AMINOTRANSFERASE 19 U/L (12-78); ALBUMIN 3.3 G/DL (3.4-5.0); ALBUMIN/GLOBULIN RATIO 0.9 (1.1-1.5); ALKALINE PHOSPHATASE 96 IU/L (46-116); ANION GAP 13 (8-16); ASPARTATE AMINO TRANSFERASE 23 U/L (10-37); BILIRUBIN,TOTAL 1.2 MG/DL (0.1-1.0); BLOOD UREA NITROGEN 15 MG/DL (7-18); BUN/CREATININE RATIO 8.8 (6.6-38.0); CALCIUM 8.7 MG/DL (8.5-10.1); CHLORIDE 103 MMOL/L (99-107); GLUCOSE 115 MG/DL (70-104); LIPASE 55 U/L (73-393); POTASSIUM 3.2 MMOL/L (3.5-5.1); SODIUM 141 MMOL/L (135-145); TOTAL CARBON DIOXIDE 24.8 MMOL/L (24-32); TOTAL PROTEIN 7.1 G/DL (6.4-8.2); eGFR 29 ML/MIN
--- NOTE | 2019-04-22 13:09 | NUR ---
Pt assisted back to bed from the commode. No bm noted in the commode. Pt reports severe abd and rectal pain. Pt is being transported to CT scan at this time. Will straight cath upon return from the CT scan.
[2019-04-22] MEDS ORDERED: normal saline 1000ML IV soln IVB ONE (13:55)
[2019-04-22 13:59] LABS: CLARITY,URINE CLEAR (Clear); COLOR,URINE YELLOW (Yellow); GLUCOSE, URINE NEGATIVE (Neg); KETONES,URINE NEGATIVE (Neg); LEUKOCYTE ESTERASE ,URINE NEGATIVE (Neg); NITRITES, URINE NEGATIVE (Neg); OCCULT BLOOD,URINE NEGATIVE (Neg); PROTEIN,URINE TRACE mg/dl (Neg); UROBILINOGEN,URINE 0.2 E.U/dL (0.2-1.0)
[2019-04-22 14:00] LABS: UA COLLECTION TYPE STRAIGHT CATH
[2019-04-22 14:20] LABS: HYALINE CASTS 0-3 /LPF (NEGATIVE); MUCUS STRANDS FEW /LPF (Neg); SQUAMOUS EPITHELIAL CELL,UR FEW /LPF (FEW)
[2019-04-22 14:21] LABS: BACTERIA,URINE FEW /HPF (Neg); RBC,URINE 0-2 /HPF (0-2); TRANSITIONAL EPI CELLS,URINE FEW /HPF; WBC,URINE 0-4 /HPF (0-4)
--- NOTE | 2019-04-22 15:36 | NUR ---
Enema administered as ordered. Pt is on the bedpan at this time. Pt's daughter is at the bedside.
[2019-04-22] MEDS ORDERED: LORazepam 2 mg/ml vial IV ONE (16:00)
[2019-04-22] MEDS ORDERED: POLY17PO10 PO (16:12)
--- NOTE | 2019-04-22 17:32 | NUR ---
Second enema, milk and mollasses given at this time. Pt had some immediate return of enema and stool. Pt is on a bedpan to attempt to pass more stool
[2019-04-22 18:13] VITALS: BP 134/72
== END 2019-04-22 18:49 | disposition home or self-care (01) ==
LOC: ER 10:21
DX: K59.00 Constipation, unspecified (principal); I10 Essential (primary) hypertension; J44.9 Chronic obstructive pulmonary disease, unspecified; C50.919 Malignant neoplasm of unspecified site of unspecified female breast; C80.1 Malignant (primary) neoplasm, unspecified; Z79.899 Other long term (current) drug therapy
CPT/HCPCS: 36415; 74176; 80053; 81001; 83690; 85025; 96374; 99284; J2060; J7030

== ENCOUNTER 2019-05-12 17:03 | Emergency (ER) | payer MEDICARE, OTHER ==
[~2019-05-12] VITALS: Ht 170.2 cm; Wt 110.0 kg
[~2019-05-12 17:03] MED LIST changes: +POLY17PO10 PO
--- NOTE | 2019-05-12 17:26 | NUR ---
CCOLLAR PLACE ON PT ON ARRIVAL TO ROOM 10.
[2019-05-12] MEDS ORDERED: DIPH25CA52 PO (17:31)
[2019-05-12] MEDS ORDERED: VILA10TA PO (17:31)
[2019-05-12] MEDS ORDERED: CYAN100019 PO (17:31)
--- NOTE | 2019-05-12 18:51 | NUR ---
Provider reviewed the CT results and gave verbal ok to remove the hard cervical collar and gave instructions to replace with a soft cervical collar.
--- NOTE | 2019-05-12 18:58 | NUR ---
Soft cervical collar applied by claims correspondence clerk. Tech is going to gait test the patient and assist her to the restroom in preparation for discharge to home.
[2019-05-12 19:14] VITALS: BP 159/105
== END 2019-05-12 19:17 | disposition home or self-care (01) ==
LOC: ER 17:04
DX: S16.1XXA Strain of muscle, fascia and tendon at neck level, initial encounter (principal); S00.03XA Contusion of scalp, initial encounter; I10 Essential (primary) hypertension; J44.9 Chronic obstructive pulmonary disease, unspecified; F03.90 Unspecified dementia, unspecified severity, without behavioral disturbance, psychotic disturbance, mood disturbance, and anxiety; Z79.899 Other long term (current) drug therapy; Z88.8 Allergy status to other drugs, medicaments and biological substances; Z87.440 Personal history of urinary (tract) infections; Z60.2 Problems related to living alone; Z85.3 Personal history of malignant neoplasm of breast; Z85.118 Personal history of other malignant neoplasm of bronchus and lung; W01.0XXA Fall on same level from slipping, tripping and stumbling without subsequent striking against object, initial encounter; Y93.89 Activity, other specified; Y92.89 Other specified places as the place of occurrence of the external cause; Y99.8 Other external cause status
CPT/HCPCS: 70450; 72125; 99284

== ENCOUNTER 2021-07-08 18:20 | Emergency (ER) | payer MEDICARE, OTHER ==
[~2021-07-08] VITALS: Ht 167.6 cm; Wt 50.0 kg
[~2021-07-08 18:20] MED LIST changes: -ALBU6.7H9 INH; -CHOL100046 PO; +CYAN100019 PO; -CYAN25003 PO; -POLY17PO10 PO; +VILA10TA PO
[2021-07-08] MEDS ORDERED: mupirocin 2% ointment 22GM TP STA (19:08)
[2021-07-08] MEDS ORDERED: CEPH-585 PO (19:51)
[2021-07-08 20:38] VITALS: BP 189/97
== END 2021-07-08 20:42 | disposition home or self-care (01) ==
LOC: ER 18:20
DX: S81.801A Unspecified open wound, right lower leg, initial encounter (principal); L03.115 Cellulitis of right lower limb; M25.551 Pain in right hip; I10 Essential (primary) hypertension; J44.9 Chronic obstructive pulmonary disease, unspecified; Z87.440 Personal history of urinary (tract) infections; Z85.3 Personal history of malignant neoplasm of breast; Z85.118 Personal history of other malignant neoplasm of bronchus and lung; Z60.2 Problems related to living alone; Z88.8 Allergy status to other drugs, medicaments and biological substances; Z79.899 Other long term (current) drug therapy; W19.XXXA Unspecified fall, initial encounter; Y93.89 Activity, other specified; Y92.89 Other specified places as the place of occurrence of the external cause; Y99.8 Other external cause status
CPT/HCPCS: 73502; 99284